=== PATIENT | male | born 1955 | race Hispanic/Latino ===

== ENCOUNTER → 2020-08-02 | Outpatient (CLI) | payer OTHER | END | disposition home or self-care (01) | LOC: SHCH 13:15 | PROVIDERS: ATTEND Internal Medicine Cardiovascular Disease | DX: I65.23 Occlusion and stenosis of bilateral carotid arteries (principal); I70.298 Other atherosclerosis of native arteries of extremities, other extremity; I25.10 Atherosclerotic heart disease of native coronary artery without angina pectoris; I10 Essential (primary) hypertension | CPT/HCPCS: 93306; 93356; 93880; 93925 ==

== ENCOUNTER → 2020-08-07 | Outpatient (CLI) | payer OTHER ==
[~2020-08-07] VITALS: Ht 160 cm; Wt 85.7 kg
[~2020-08-07] MED LIST: REGADENOSON 0.4 MG/5 ML PF SYG IVP SCH
== END | disposition home or self-care (01) ==
LOC: EDUNIT# 08-04 08:00 → SHCH 08:07
PROVIDERS: ATTEND Internal Medicine Cardiovascular Disease
DX: I25.10 Atherosclerotic heart disease of native coronary artery without angina pectoris (principal)
CPT/HCPCS: 78452; 93017; 96374; A9500 ×2; J2785

== ENCOUNTER 2020-09-07 14:17 | Inpatient (IN) | payer OTHER ==
[~2020-09-07] VITALS: Ht 160 cm; Wt 83.2 kg
[2020-09-07] MEDS: ZOSYN 3.375GM+NS 50ML 50 ML IV SCH (07:31)
[2020-09-07] MEDS: LACTATED RINGERS 1000ML 1,000 ML IV SCH (07:32)
[2020-09-07] MEDS ORDERED: ONDANSETRON 4MG INJ ONE (14:58)
[2020-09-07 16:13] LABS: BASOPHILS % (AUTO) 0.3 % (0.0-5.0); HEMATOCRIT 36.4 % (42-54); LYMPHOCYTES % (AUTO) 8.6 % (21.0-51.0); MEAN CORPUSCULAR HGB CONC 35.2 g/dL (32.0-36.0); MEAN CORPUSCULAR VOLUME 85.4 fL (79-99); MONOCYTES % (AUTO) 5.7 % (3.0-13.0); NEUTROPHILS % (AUTO) 84.6 % (40.0-77.0); PLATELET COUNT (AUTO) 254 K/uL (130-400); RED BLOOD CELL COUNT(AUTO) 4.26 MIL/uL (4.50-6.20); RED CELL DISTRIBUTION WIDTH 13.6 % (11.0-15.5); WHITE BLOOD COUNT (AUTO) 23.2 K/uL (4.8-10.8)
[2020-09-07] MEDS ORDERED: ZOSYN 3.375GM+NS 50ML 50 ML IV ONE (16:29)
[2020-09-07 16:37] LABS: INR 1.05 (0.85-1.15); PROTHROMBIN TIME 11.4 SEC (9.6-11.6)
[2020-09-07 16:38] LABS: CREATININE 0.9 mg/dL (0.5-1.5); PARTIAL THROMBOPLASTIN TIME 22.8 SEC (26.3-35.5)
[2020-09-07 16:45] LABS: ALBUMIN 3.7 g/dL (3.5-5.0); BILIRUBIN,TOTAL 0.3 mg/dL (0.2-1.0)
[2020-09-07 17:35] LABS: HEMATOCRIT 36.4 % (42-54)
[2020-09-07] MEDS ORDERED: FOLIC ACID 5 MG/ML VIAL IV SCH (18:15)
[2020-09-07] MEDS ORDERED: THIAMINE HCL 100 MG/ML 2ML VIAL IVP SCH (18:15)
[2020-09-07] MEDS ORDERED: ONDANSETRON 4MG INJ IVP PRN (19:00)
[2020-09-07] MEDS ORDERED: 1/2 NS 1000ML 1,000 ML IV SCH (19:00)
[2020-09-07 19:31] LABS: APPEARANCE,URINE CLOUDY (CLEAR); BILIRUBIN,URINE NEGATIVE (NEGATIVE); COLOR,URINE YELLOW (YELLOW); GLUCOSE, URINE (UA) NEGATIVE (NEGATIVE); KETONES,URINE NEGATIVE (NEGATIVE); LEUKOCYTE ESTERASE ,URINE NEGATIVE (NEGATIVE); NITRATE,URINE NEGATIVE (NEGATIVE); OCCULT BLOOD,URINE LARGE (NEGATIVE); PROTEIN,URINE 100 mg/dL (NEGATIVE); UROBILINOGEN,URINE 0.2 mg/dL (0.2-1.0)
[2020-09-07 19:52] LABS: RBC,URINE 26-50 /HPF (0-1)
[2020-09-07 19:53] LABS: BACTERIA,URINE Few /HPF (None Seen); SQUAMOUS EPITHELIAL CELL,UR Few /HPF (0-2)
[2020-09-07 19:54] LABS: TRANSITIONAL EPI CELLS,URINE Rare /HPF (None Seen)
[2020-09-07] MEDS: FAMOTIDINE 20MG VIAL IV SCH (21:00)
[2020-09-07 21:04] LABS: HEMATOCRIT 36.7 % (42-54)
[2020-09-07] MEDS: VANCOMYCIN 1G 1.25 GM in 0.9% NACL 250ML 250 ML IV SCH (21:30)
[2020-09-07] MEDS ORDERED: VANCOMYCIN PROTOCOL PER PHARMACY IV SCH (21:30)
[2020-09-07] MEDS ORDERED: FAMOTIDINE 20MG VIAL IV ONE (21:34)
[2020-09-07] MEDS ORDERED: FOLIC ACID 5 MG/ML VIAL ONE (21:36)
[2020-09-07] MEDS ORDERED: COMPOUND IV REFRIGERATED 1 EACH IVSOLN MISC PRN (22:00)
[2020-09-07] MEDS ORDERED: THIAMINE HCL 100 MG/ML 2ML VIAL ONE (23:05)
[2020-09-08] VITALS (16 sets, daily range): BP systolic 127–169; BP diastolic 59–82
[2020-09-08] LABS: BASOPHILS % (AUTO) 0.2 % (0.0-5.0); HEMATOCRIT 32.4 % (42-54); LYMPHOCYTES % (AUTO) 5.4 % (21.0-51.0); MEAN CORPUSCULAR HEMOGLOBIN 30.6 pg (27.0-33.0); MEAN CORPUSCULAR HGB CONC 35.2 g/dL (32.0-36.0); MEAN CORPUSCULAR VOLUME 87.1 fL (79-99); MONOCYTES % (AUTO) 5.1 % (3.0-13.0); NEUTROPHILS % (AUTO) 88.4 % (40.0-77.0); PLATELET COUNT (AUTO) 274 K/uL (130-400); RED BLOOD CELL COUNT(AUTO) 3.72 MIL/uL (4.50-6.20); RED CELL DISTRIBUTION WIDTH 13.9 % (11.0-15.5); WHITE BLOOD COUNT (AUTO) 22.2 K/uL (4.8-10.8)
[2020-09-08] MEDS ORDERED: ZOSYN 3.375GM+NS 50ML 50 ML IV ONE ×2 (02:00→14:14)
[2020-09-08 04:54] LABS: BASOPHILS % (AUTO) 0.2 % (0.0-5.0); HEMATOCRIT 30.4 % (42-54); LYMPHOCYTES % (AUTO) 7.3 % (21.0-51.0); MEAN CORPUSCULAR HEMOGLOBIN 29.2 pg (27.0-33.0); MEAN CORPUSCULAR HGB CONC 33.9 g/dL (32.0-36.0); MEAN CORPUSCULAR VOLUME 86.1 fL (79-99); MONOCYTES % (AUTO) 5.7 % (3.0-13.0); NEUTROPHILS % (AUTO) 86.2 % (40.0-77.0); PLATELET COUNT (AUTO) 248 K/uL (130-400); RED BLOOD CELL COUNT(AUTO) 3.53 MIL/uL (4.50-6.20); RED CELL DISTRIBUTION WIDTH 13.7 % (11.0-15.5); WHITE BLOOD COUNT (AUTO) 19.5 K/uL (4.8-10.8)
[2020-09-08] MEDS: ZOSYN 3.375GM+NS 50ML 50 ML IV SCH ×3 (05:00→20:26)
[2020-09-08 05:14] LABS: ALBUMIN 3.4 g/dL (3.5-5.0); BILIRUBIN,TOTAL 0.5 mg/dL (0.2-1.0); CREATININE 1.3 mg/dL (0.5-1.5); TOTAL PROTEIN, SERUM 6.7 g/dL (6.0-8.3)
[2020-09-08 05:52] LABS: HEMOGLOBIN A1C 6.3 % (4.0-6.0)
[2020-09-08] MEDS ORDERED: PANTOPRAZOLE 40 MG/VIAL IVP SCH (09:00)
[2020-09-08] MEDS ORDERED: THIAMINE HCL 100 MG/ML 2ML VIAL ONE (09:31)
[2020-09-08] MEDS ORDERED: FAMOTIDINE 20MG VIAL IV ONE (09:32)
[2020-09-08] MEDS ORDERED: FOLIC ACID 5 MG/ML VIAL ONE (09:34)
[2020-09-08] MEDS: VANCOMYCIN 1G 1.25 GM in 0.9% NACL 250ML 250 ML IV SCH ×2 (10:53→20:28)
[2020-09-08] MEDS: FOLIC ACID 5 MG/ML VIAL IV SCH (10:53)
[2020-09-08] MEDS: FAMOTIDINE 20MG VIAL IV SCH ×2 (10:53→20:26)
[2020-09-08] MEDS: THIAMINE HCL 100 MG/ML 2ML VIAL IVP SCH (10:53)
[2020-09-08] MEDS ORDERED: LACTATED RINGERS 1000ML 1,000 ML IV ONE (12:39)
[2020-09-08] MEDS: LACTATED RINGERS 1000ML 1,000 ML IV SCH ×2 (12:45→20:26)
[2020-09-08 13:12] LABS: HEMATOCRIT 27.1 % (42-54)
[2020-09-08 19:35] LABS: HEMATOCRIT 25.4 % (42-54)
[2020-09-09] VITALS (20 sets, daily range): BP systolic 125–160; BP diastolic 63–83
[2020-09-09 03:44] LABS: BASOPHILS % (AUTO) 0.3 % (0.0-5.0); EOSINOPHILS % (AUTO) 0.2 % (0.0-8.0); HEMATOCRIT 22.7 % (42-54); LYMPHOCYTES % (AUTO) 13.4 % (21.0-51.0); MEAN CORPUSCULAR HEMOGLOBIN 29.7 pg (27.0-33.0); MEAN CORPUSCULAR HGB CONC 34.4 g/dL (32.0-36.0); MEAN CORPUSCULAR VOLUME 86.3 fL (79-99); NEUTROPHILS % (AUTO) 77.5 % (40.0-77.0); PLATELET COUNT (AUTO) 154 K/uL (130-400); RED BLOOD CELL COUNT(AUTO) 2.63 MIL/uL (4.50-6.20); RED CELL DISTRIBUTION WIDTH 13.7 % (11.0-15.5); WHITE BLOOD COUNT (AUTO) 13.2 K/uL (4.8-10.8)
[2020-09-09 03:52] LABS: CREATININE 1.1 mg/dL (0.5-1.5)
[2020-09-09] MEDS: ZOSYN 3.375GM+NS 50ML 50 ML IV SCH ×3 (04:53→20:13)
[2020-09-09] MEDS: FOLIC ACID 5 MG/ML VIAL IV SCH (09:00)
[2020-09-09] MEDS: VANCOMYCIN 1G 1.25 GM in 0.9% NACL 250ML 250 ML IV SCH ×2 (09:00→20:13)
[2020-09-09] MEDS: FAMOTIDINE 20MG VIAL IV SCH ×2 (09:05→20:13)
[2020-09-09] MEDS: THIAMINE HCL 100 MG/ML 2ML VIAL IVP SCH (09:05)
[2020-09-09] MEDS: LACTATED RINGERS 1000ML 1,000 ML IV SCH ×2 (10:04→20:14)
[2020-09-09] MEDS: METOPROLOL TARTRATE 25 MG TAB PO SCH (20:13)
[2020-09-10] VITALS (24 sets, daily range): BP systolic 115–150; BP diastolic 50–92
[2020-09-10] MEDS ORDERED: LORAZEPAM 2 MG/ML 1 ML VIAL IVP ONE (02:00)
[2020-09-10 03:34] LABS: BASOPHILS % (AUTO) 0.3 % (0.0-5.0); EOSINOPHILS % (AUTO) 2.2 % (0.0-8.0); LYMPHOCYTES % (AUTO) 18.7 % (21.0-51.0); MEAN CORPUSCULAR HEMOGLOBIN 29.6 pg (27.0-33.0); MEAN CORPUSCULAR HGB CONC 33.8 g/dL (32.0-36.0); MEAN CORPUSCULAR VOLUME 87.6 fL (79-99); MONOCYTES % (AUTO) 8.1 % (3.0-13.0); NEUTROPHILS % (AUTO) 70.1 % (40.0-77.0); PLATELET COUNT (AUTO) 154 K/uL (130-400); RED BLOOD CELL COUNT(AUTO) 2.74 MIL/uL (4.50-6.20); RED CELL DISTRIBUTION WIDTH 13.7 % (11.0-15.5); WHITE BLOOD COUNT (AUTO) 10.4 K/uL (4.8-10.8)
[2020-09-10 03:46] LABS: BILIRUBIN,TOTAL 0.4 mg/dL (0.2-1.0); CREATININE 1.1 mg/dL (0.5-1.5); POTASSIUM 4.1 mmol/L (3.5-5.1); TOTAL PROTEIN, SERUM 6.1 g/dL (6.0-8.3)
[2020-09-10] MEDS: ZOSYN 3.375GM+NS 50ML 50 ML IV SCH ×3 (04:44→20:04)
[2020-09-10] MEDS: VANCOMYCIN 1G 1.25 GM in 0.9% NACL 250ML 250 ML IV SCH ×2 (08:05→20:04)
[2020-09-10] MEDS: THIAMINE HCL 100 MG/ML 2ML VIAL IVP SCH (08:05)
[2020-09-10] MEDS: FAMOTIDINE 20MG VIAL IV SCH ×2 (08:05→20:03)
[2020-09-10] MEDS: METOPROLOL TARTRATE 25 MG TAB PO SCH ×2 (08:05→20:03)
[2020-09-10] MEDS: FOLIC ACID 5 MG/ML VIAL IV SCH (08:08)
[2020-09-10] MEDS ORDERED: IOHEXOL 350 MG/ML 100ML INFUS..BTL IV ONE (08:54)
[2020-09-10] MEDS: LACTATED RINGERS 1000ML 1,000 ML IV SCH ×2 (12:40→20:04)
[2020-09-10] MEDS: ATORVASTATIN 40 MG TABLET PO SCH (20:03)
[2020-09-11] VITALS (19 sets, daily range): BP systolic 95–145; BP diastolic 54–75
[2020-09-11 03:35] LABS: BASOPHILS % (AUTO) 0.4 % (0.0-5.0); EOSINOPHILS % (AUTO) 3.4 % (0.0-8.0); LYMPHOCYTES % (AUTO) 19.2 % (21.0-51.0); MEAN CORPUSCULAR HEMOGLOBIN 29.5 pg (27.0-33.0); MEAN CORPUSCULAR HGB CONC 33.8 g/dL (32.0-36.0); MEAN CORPUSCULAR VOLUME 87.3 fL (79-99); MONOCYTES % (AUTO) 8.7 % (3.0-13.0); NEUTROPHILS % (AUTO) 67.8 % (40.0-77.0); PLATELET COUNT (AUTO) 147 K/uL (130-400); RED BLOOD CELL COUNT(AUTO) 2.75 MIL/uL (4.50-6.20); RED CELL DISTRIBUTION WIDTH 13.7 % (11.0-15.5); WHITE BLOOD COUNT (AUTO) 8.3 K/uL (4.8-10.8)
[2020-09-11 03:52] LABS: ALBUMIN 2.9 g/dL (3.5-5.0); BILIRUBIN,TOTAL 0.7 mg/dL (0.2-1.0); CREATININE 1.2 mg/dL (0.5-1.5); POTASSIUM 3.6 mmol/L (3.5-5.1); TOTAL PROTEIN, SERUM 6.3 g/dL (6.0-8.3)
[2020-09-11] MEDS: ZOSYN 3.375GM+NS 50ML 50 ML IV SCH ×2 (04:39→12:47)
[2020-09-11] MEDS: METOPROLOL TARTRATE 25 MG TAB PO SCH ×2 (08:06→20:47)
[2020-09-11] MEDS: FOLIC ACID 5 MG/ML VIAL IV SCH (08:06)
[2020-09-11] MEDS: THIAMINE HCL 100 MG/ML 2ML VIAL IVP SCH (08:06)
[2020-09-11] MEDS: FAMOTIDINE 20MG VIAL IV SCH ×2 (08:06→20:47)
[2020-09-11] MEDS: VANCOMYCIN 1G 1.25 GM in 0.9% NACL 250ML 250 ML IV SCH (08:07)
[2020-09-11] MEDS ORDERED: DOCUSATE SODIUM 100 MG CAP PO SCH (10:00)
[2020-09-11] MEDS: DOCUSATE SODIUM 100 MG CAP PO SCH ×2 (13:00→20:46)
[2020-09-11] MEDS: POLYETHYLENE GLYCOL 3350 17 GM POWD.PACK PO SCH (14:19)
[2020-09-11] MEDS: ATORVASTATIN 40 MG TABLET PO SCH (20:47)
[2020-09-11] MEDS ORDERED: POLYETHYLENE GLYCOL 3350 17 GM POWD.PACK PO SCH (21:00)
[2020-09-12] VITALS: BP 135/57
[2020-09-12 04:00] VITALS: BP 130/62
[2020-09-12 04:58] LABS: BASOPHILS % (AUTO) 0.4 % (0.0-5.0); EOSINOPHILS % (AUTO) 4.3 % (0.0-8.0); HEMATOCRIT 25.7 % (42-54); LYMPHOCYTES % (AUTO) 21.4 % (21.0-51.0); MEAN CORPUSCULAR HEMOGLOBIN 29.2 pg (27.0-33.0); MEAN CORPUSCULAR HGB CONC 33.9 g/dL (32.0-36.0); MEAN CORPUSCULAR VOLUME 86.2 fL (79-99); MONOCYTES % (AUTO) 10.1 % (3.0-13.0); PLATELET COUNT (AUTO) 178 K/uL (130-400); RED BLOOD CELL COUNT(AUTO) 2.98 MIL/uL (4.50-6.20); RED CELL DISTRIBUTION WIDTH 13.8 % (11.0-15.5); WHITE BLOOD COUNT (AUTO) 7.9 K/uL (4.8-10.8)
[2020-09-12 05:26] LABS: ALBUMIN 3.1 g/dL (3.5-5.0); BILIRUBIN,TOTAL 0.7 mg/dL (0.2-1.0); CREATININE 1.2 mg/dL (0.5-1.5); POTASSIUM 3.9 mmol/L (3.5-5.1)
[2020-09-12 08:08] VITALS: BP 128/60
[2020-09-12] MEDS: THIAMINE HCL 100 MG/ML 2ML VIAL IVP SCH (08:26)
[2020-09-12] MEDS: METOPROLOL TARTRATE 25 MG TAB PO SCH (08:26)
[2020-09-12] MEDS: DOCUSATE SODIUM 100 MG CAP PO SCH (08:26)
[2020-09-12] MEDS: FAMOTIDINE 20MG VIAL IV SCH (08:26)
[2020-09-12] MEDS: POLYETHYLENE GLYCOL 3350 17 GM POWD.PACK PO SCH (08:27)
[2020-09-12] MEDS: FOLIC ACID 5 MG/ML VIAL IV SCH (08:32)
[2020-09-12] MEDS ORDERED: CLOPIDOGREL 75MG TAB PO SCH (09:00)
[2020-09-12] MEDS ORDERED: ASPIRIN 81MG CHEW TAB PO SCH (09:00)
[2020-09-12 12:00] VITALS: BP 113/56
[2020-11-23] MEDS ORDERED: GABA-529 PO (11:05)
[2020-11-23] MEDS ORDERED: [UNRECOGNIZED DRUG - OTHER] PO (11:05)
[2020-11-23] MEDS ORDERED: ASPI-1443 PO (11:05)
[2020-11-23] MEDS ORDERED: CLOP75TA14 PO (11:05)
[2020-11-23] MEDS ORDERED: ROSU10TA28 PO (11:05)
[2020-11-23] MEDS ORDERED: CILO50TA PO (11:05)
[2020-11-23] MEDS ORDERED: METO25TA6 PO (11:05)
[2020-11-23] MEDS ORDERED: FENO145T26 PO (11:05)
[2020-11-23] MEDS ORDERED: VITAMIN D PO (11:06)
== END 2020-09-12 11:00 | disposition home or self-care (01) | DRG 871 ==
LOC: EDH 14:17 → OBSVTOIN 17:32 → EDHIP 17:32 → 2DH 09-08 14:33 → 4BH 09-11 17:28
PROVIDERS: ADMIT Internal Medicine; ATTEND Internal Medicine
PROC: 30233R1 Transfusion of Nonautologous Platelets into Peripheral Vein, Percutaneous Approach (ICD-10-PCS; principal; 2020-09-07)
DX: A41.9 Sepsis, unspecified organism (principal); K66.1 Hemoperitoneum; D62 Acute posthemorrhagic anemia; N39.0 Urinary tract infection, site not specified; R58 Hemorrhage, not elsewhere classified; N39.498 Other specified urinary incontinence; E66.9 Obesity, unspecified; E78.5 Hyperlipidemia, unspecified; I10 Essential (primary) hypertension; I25.10 Atherosclerotic heart disease of native coronary artery without angina pectoris; I35.0 Nonrheumatic aortic (valve) stenosis; I65.29 Occlusion and stenosis of unspecified carotid artery; I73.9 Peripheral vascular disease, unspecified; N32.89 Other specified disorders of bladder; K59.00 Constipation, unspecified; S30.1XXA Contusion of abdominal wall, initial encounter; Y93.89 Activity, other specified; Y92.89 Other specified places as the place of occurrence of the external cause; Y99.8 Other external cause status; Z68.32 Body mass index [BMI] 32.0-32.9, adult; Z79.899 Other long term (current) drug therapy; Z95.1 Presence of aortocoronary bypass graft; Z95.5 Presence of coronary angioplasty implant and graft; Z95.820 Peripheral vascular angioplasty status with implants and grafts
CPT/HCPCS: 36415; 71045; 71275; 74174; 74176; 76770; 76882; 80048; 80053; 81001; 81003; 82550; 83036; 83605; 84145; 84484; 85014; 85018; 85025; 85610; 85730; 86850; 86900; 86901; 87040; 93005; 93925; 99291; G0378; J2405; J2543; J3370; J3411; J3490; J7050; J7120; P9034; Q9967

== ENCOUNTER 2020-11-24 06:00 | Day surgery (SDC) | payer OTHER ==
[2020-11-21 13:11] LABS: BASOPHILS % (AUTO) 0.6 % (0.0-5.0); EOSINOPHILS % (AUTO) 5.1 % (0.0-8.0); HEMATOCRIT 44.7 % (42-54); MEAN CORPUSCULAR HGB CONC 33.3 g/dL (32.0-36.0); MONOCYTES % (AUTO) 8.3 % (3.0-13.0); NEUTROPHILS % (AUTO) 62.9 % (40.0-77.0); PLATELET COUNT (AUTO) 191 K/uL (130-400); RED BLOOD CELL COUNT(AUTO) 5.32 MIL/uL (4.50-6.20); RED CELL DISTRIBUTION WIDTH 13.2 % (11.0-15.5); WHITE BLOOD COUNT (AUTO) 7.7 K/uL (4.8-10.8)
[2020-11-21 13:21] LABS: APPEARANCE,URINE CLEAR (CLEAR); BILIRUBIN,URINE NEGATIVE (NEGATIVE); COLOR,URINE YELLOW (YELLOW); GLUCOSE, URINE (UA) NEGATIVE (NEGATIVE); KETONES,URINE NEGATIVE (NEGATIVE); LEUKOCYTE ESTERASE ,URINE NEGATIVE (NEGATIVE); NITRATE,URINE NEGATIVE (NEGATIVE); OCCULT BLOOD,URINE NEGATIVE (NEGATIVE); PH,URINE 5.5 (5.0-8.0); PROTEIN,URINE NEGATIVE (NEGATIVE); UROBILINOGEN,URINE 0.2 mg/dL (0.2-1.0)
[2020-11-21 13:32] LABS: CREATININE 1.1 mg/dL (0.5-1.5); POTASSIUM 4.4 mmol/L (3.5-5.1)
[2020-11-21 13:49] LABS: PROTHROMBIN TIME 10.9 SEC (9.6-11.6)
[2020-11-21 13:50] LABS: PARTIAL THROMBOPLASTIN TIME 26.8 SEC (26.3-35.5)
[2020-11-23 10:35] VITALS: BP 140/71
[~2020-11-24] VITALS: Ht 160 cm; Wt 84.5 kg
[2020-11-24] VITALS (25 sets, daily range): BP systolic 128–178; BP diastolic 55–87
[~2020-11-24 06:00] MED LIST changes: +ASPI-1443 PO; +CILO50TA PO; +CLOP75TA14 PO; +FENO145T26 PO; +GABA-529 PO; +METO25TA6 PO; -REGADENOSON 0.4 MG/5 ML PF SYG IVP SCH; +ROSU10TA28 PO; +VITAMIN D PO
[2020-11-24] MEDS ORDERED: 0.9%NACL 1000ML 1,000 ML IV ONE (06:40)
[2020-11-24] MEDS ORDERED: HEPARIN 10,000 UNIT/10ML (1,000 UNIT/ML) VIAL ONE (07:13)
[2020-11-24] MEDS ORDERED: PROPOFOL 1000 MG/100 ML 100 ML IV ONE ×2 (07:14→08:17)
[2020-11-24] MEDS ORDERED: KETAMINE 50MG/ML SYRINGE 50 MG/ML DISP.SYRIN IV ONE (07:15)
[2020-11-24] MEDS ORDERED: IODIXANOL 320 MG/ML 100 ML VIAL ONE ×2 (07:15→09:36)
[2020-11-24] MEDS ORDERED: MIDAZOLAM HCL 1 MG/ML 2ML VIAL ONE (07:17)
[2020-11-24] MEDS ORDERED: CEFAZOLIN SODIUM 1 GM VIAL ONE (07:49)
[2020-11-24] MEDS ORDERED: LIDOCAINE HCL 400MG/20ML VIAL ONE (07:50)
[2020-11-24] MEDS ORDERED: SODIUM BICARB 50MEQ 50ML VIAL 50 ML ONE (07:50)
[2020-11-24] MEDS ORDERED: FENTANYL CITRATE PF 50 MCG/1 ML 2ML VIAL ONE (08:23)
[2020-11-24] MEDS ORDERED: ENALAPRILAT DIHYDRATE 1.25 MG/ML 2ML VIAL IVP ONE (09:35)
[2020-11-24] MEDS ORDERED: HYDRALAZINE 20MG/ML VIAL ONE (09:36)
[2020-11-24] MEDS ORDERED: PROPOFOL 10 MG/ML 20ML VIAL IV ONE (09:43)
[2020-11-24] MEDS ORDERED: ONDANSETRON 4MG INJ IV PRN (10:00)
[2020-11-24] MEDS ORDERED: 0.9%NACL 1000ML 1,000 ML IV SCH (10:00)
[2020-11-24] MEDS ORDERED: ACETAMINOPHEN 325 MG TAB PO PRN (10:00)
[2020-11-24] MEDS ORDERED: MORPHINE 2 MG SYG ONE (13:11)
== END 2020-11-24 18:46 | disposition home or self-care (01) ==
LOC: DAH 06:00
PROVIDERS: ATTEND Internal Medicine Cardiovascular Disease
DX: I70.213 Atherosclerosis of native arteries of extremities with intermittent claudication, bilateral legs (principal); Z20.822 Contact with and (suspected) exposure to COVID-19; I70.218 Atherosclerosis of native arteries of extremities with intermittent claudication, other extremity; I70.0 Atherosclerosis of aorta; I25.119 Atherosclerotic heart disease of native coronary artery with unspecified angina pectoris; I10 Essential (primary) hypertension; I49.1 Atrial premature depolarization; I25.2 Old myocardial infarction; E66.9 Obesity, unspecified; E78.5 Hyperlipidemia, unspecified; Z95.5 Presence of coronary angioplasty implant and graft; Z90.89 Acquired absence of other organs; Z90.49 Acquired absence of other specified parts of digestive tract; Z98.890 Other specified postprocedural states; Z79.01 Long term (current) use of anticoagulants; Z79.82 Long term (current) use of aspirin; Z79.899 Other long term (current) drug therapy; Z68.32 Body mass index [BMI] 32.0-32.9, adult
CPT/HCPCS: 36415 ×2; 37220; 37236; 71045; 75630; 76705; 80048; 81003; 85025; 85347 ×2; 85610; 85730; 87426; 93005; A4215; A4216; A4221; A4222; A4223 ×3; A4554; A4663; A6402; C1725 ×5; C1760 ×4; C1769 ×3; C1876; C1894 ×5; J0360; J0690; J1644 ×3; J2250; J2405; J2704 ×3; J3010; J3490 ×4; J7030; Q9967; 75625; 96365; 96366; A4606

== ENCOUNTER → 2022-02-19 | Outpatient (CLI) | payer OTHER | END | disposition home or self-care (01) | LOC: SHCH 08:53 | PROVIDERS: ATTEND Internal Medicine Cardiovascular Disease | DX: I65.23 Occlusion and stenosis of bilateral carotid arteries (principal) | CPT/HCPCS: 93880 ==

== ENCOUNTER → 2022-05-02 | Outpatient (CLI) | payer OTHER ==
[2022-05-02 12:42] LABS: ALBUMIN 4.1 g/dL (3.5-5.0); CREATININE 1.1 mg/dL (0.5-1.5); POTASSIUM 4.2 mmol/L (3.5-5.1); TOTAL PROTEIN, SERUM 7.7 g/dL (6.0-8.3)
== END | disposition home or self-care (01) ==
LOC: LAB 08:33
PROVIDERS: ATTEND Internal Medicine Cardiovascular Disease
DX: I10 Essential (primary) hypertension (principal)
CPT/HCPCS: 36415; 80053

== ENCOUNTER → 2022-05-03 | Outpatient (CLI) | payer OTHER ==
[~2022-05-03] MED LIST changes: +IOHEXOL 350 MG/ML 100ML INFUS..BTL IV ONE
== END | disposition home or self-care (01) ==
LOC: RAH 07:15
PROVIDERS: ATTEND Internal Medicine Cardiovascular Disease
DX: I73.9 Peripheral vascular disease, unspecified (principal); M47.815 Spondylosis without myelopathy or radiculopathy, thoracolumbar region; I25.10 Atherosclerotic heart disease of native coronary artery without angina pectoris
CPT/HCPCS: 74174; Q9967

== ENCOUNTER → 2024-03-03 | Outpatient (CLI) | payer OTHER ==
[~2024-03-03] MED LIST changes: -CILO50TA PO; +CILO50TA2 PO; +CLOP-31 PO; -CLOP75TA14 PO; -IOHEXOL 350 MG/ML 100ML INFUS..BTL IV ONE; -ROSU10TA28 PO; +ROSU10TA72 PO
== END | disposition home or self-care (01) ==
LOC: SHCH 07:48
PROVIDERS: ATTEND Internal Medicine Cardiovascular Disease
DX: I08.0 Rheumatic disorders of both mitral and aortic valves (principal); I65.22 Occlusion and stenosis of left carotid artery; I71.40 Abdominal aortic aneurysm, without rupture, unspecified; I25.10 Atherosclerotic heart disease of native coronary artery without angina pectoris; I70.0 Atherosclerosis of aorta
CPT/HCPCS: 93306; 93880; 93978

== ENCOUNTER → 2024-03-05 | Outpatient (CLI) | payer OTHER ==
[2024-03-05] MEDS: REGADENOSON 0.4 MG/5 ML PF SYG IVP ONE (10:22)
== END | disposition home or self-care (01) ==
LOC: SHCH 08:02
PROVIDERS: ATTEND Internal Medicine Cardiovascular Disease
DX: I25.10 Atherosclerotic heart disease of native coronary artery without angina pectoris (principal); R06.00 Dyspnea, unspecified
CPT/HCPCS: 78452; 93017; J2785; A9500 ×2

== ENCOUNTER → 2024-05-17 | Outpatient (CLI) | payer OTHER ==
[2024-05-17 16:42] LABS: POTASSIUM 3.8 mmol/L (3.5-5.1)
== END | disposition home or self-care (01) ==
LOC: LAB 12:55
PROVIDERS: ATTEND Internal Medicine Cardiovascular Disease
DX: I10 Essential (primary) hypertension (principal)
CPT/HCPCS: 36415; 80048

== ENCOUNTER → 2024-05-21 | Outpatient (CLI) | payer OTHER ==
[~2024-05-21] MED LIST changes: +IOHEXOL 350 MG/ML 100ML INFUS..BTL IV ONE; +IOHEXOL-350 50ML VIAL IV ONE
--- NOTE | 2024-05-21 12:07 | HMCIMG ---
CT CARDIAC ANGIO W/CONT. CCTA REASON: CHEST PAIN COMPARISON: None TECHNIQUE: Images are obtained through the heart in the axial plane before and during bolus IV contrast infusion, 100 cc Omnipaque 350. 2-D and 3-D multiplanar reconstruction images were then performed. The injection had to be repeated once due to motion artifact on the first sequence, total contrast volume was 200 cc. FINDINGS: This dictation is for the noncardiac findings only. Cardiac and coronary artery findings are reported separately. Visualized portions of the lungs are clear. There is normal-appearing pulmonary interstitium. There is no hilar or mediastinal lymphadenopathy. Chest wall structures appear unremarkable. IMPRESSION: 1. Unremarkable noncardiac portions of CT cardiac angiography.
== END | disposition home or self-care (01) ==
LOC: RAH 09:00
PROVIDERS: ATTEND Internal Medicine Cardiovascular Disease
DX: R07.9 Chest pain, unspecified (principal)
CPT/HCPCS: 75574; Q9967 ×2